=== PATIENT | female | born 1975 | race Caucasian/White ===

== ENCOUNTER 2017-07-18 09:17 | Emergency (ER) | payer OTHER ==
[~2017-07-18] VITALS: Ht 166.4 cm; Wt 71.3 kg
[~2017-07-18 09:17] MED LIST: AMOX500T PO; CORTIS10A EACH EAR
[2017-07-18 09:21] VITALS: BP 128/68; PULSE 88; RESP 16; TEMP 99.6; O2SAT 99
[2017-07-18] MEDS ORDERED: CIPR0.3S EACH EAR (09:30)
[2017-07-18] MEDS ORDERED: CIPR500T2 PO (10:15)
[2017-07-18] MEDS ORDERED: PRED20 PO (10:15)
--- NOTE | 2017-07-18 10:16 | PD ---
HPI Chief Complaint: ENT Complaint Time Seen by Provider: 09:36 Travel History International Travel<30 days: No Contact w/Intl Traveler<30days: No Traveled to known affect area: No History of Present Illness HPI Patient is a 42-year-old female presents emergency department for evaluation of right ear pain and swelling. The patient states she was diagnosed with an outer ear infection yesterday at an urgent care clinic and she was placed on eardrops. She is fairly certain of there were Ciprodex eardrops. She states despite using them last night her pain is still there. She also has a history of eczema and thinks that she might have eczema rear. Denies any cough congestion. States he does have some ringing in her ears. Denies any fevers. Symptoms have been present for the past few days and gradually worsening. PFSH Past Medical History Cancer: No Cardiovascular Problems: No Diminished Hearing: No Endocrine: No Genitourinary: No Immune Disorder: No Musculoskeletal: No Neurologic: Yes Psychiatric: No Reproductive: No Respiratory: No Migraines: Yes Tetanus Vaccination: Unknown Influenza Vaccination: Yes ?: Not LMP: 06/19/17 Past Surgical History Section: Yes (x2) Cholecystectomy: Yes Gynecologic Surgery: Yes (C SECTION X2) Other Surgery: Yes (SINUS SURGERY, breast augmentation, tummy tuck) Social History Alcohol Use: Yes (occas. wine and mix drinks) Tobacco Use: No Substance Use: No Allergies-Medications (Allergen,Severity, Reaction): Coded Allergies: Sulfa (Sulfonamide Antibiotics) (Unverified Allergy, Unknown, 07/18/17) Reported Meds & Prescriptions Reported Meds & Active Scripts Active Ultram (Tramadol HCl) 50 Mg Tab 50 Mg PO Q6H PRN Ciprofloxacin (Ciprofloxacin HCl) 500 Mg Tab 500 Mg PO BID 7 Days Prednisone 20 Mg Tab 60 Mg PO DAILY 5 Days Reported Ciprodex Otic Drops (Ciprofloxacin-Dexamethasone Otic Drops) 0.3-0.1% Susp 3 Drop EACH EAR BID Review of Systems Except as stated in HPI: all other systems reviewed are Neg Physical Exam Narrative GENERAL: Well-nourished, well-developed patient. SKIN: Focused skin assessment warm/dry. HEAD: Normocephalic. EYES: No scleral icterus. No injection or drainage. ENT: There is some stenosis of the external ear canal on the right, TM clear, there is minimal amount of discharge within the ear canal. The patient is also erythematous but does not appear to be overtly swollen. No mastoid tenderness. The left ear canal and TM are normal. NECK: Supple, trachea midline. No JVD or lymphadenopathy. CARDIOVASCULAR: Regular rate and rhythm without murmurs, gallops, or rubs. RESPIRATORY: Breath sounds equal bilaterally. No accessory muscle use. GASTROINTESTINAL: Abdomen soft, non-tender, nondistended. MUSCULOSKELETAL: No cyanosis, or edema. BACK: Nontender without obvious deformity. No CVA tenderness. Data Data Last Documented VS Vital Signs Date Time Temp Pulse Resp B/P (MAP) Pulse Ox O2 Delivery O2 Flow Rate FiO2 07/18/17 09:27 16 07/18/17 09:21 99.6 88 128/68 (88) 99 MDM Medical Decision Making Medical Screen Exam Complete: Yes Emergency Medical Condition: Yes Differential Diagnosis Otitis externa which is moderate in severity, mastoiditis unlikely, URI unlikely , cellulitis. Narrative Course An ear wick was placed for the patient and discussed to use her ear drops 4 times a day until they're all gone. She will be placed on oral prednisone as well as ciprofloxacin given the severity is moderate and approaching severe. She appears well and in no distress. She stable for discharge. Discussed return to ED criteria. Diagnosis Primary Impression: Otitis externa Qualified Codes: H60.501 - Unspecified acute noninfective otitis externa, right ear Additional Instructions: Usual eardrops 4 times a day, one drop in the right ear. If the ear wick falls out that is okay continue to use her eardrops. If the ear does not fall out in a week return to the emergency department for its removal. Med/Other Pt SpecificInfo: Prescription(s) given Scripts Tramadol (Ultram) 50 Mg Tab 50 MG PO Q6H Y for PAIN, #10 TAB 0 Refills Prov: Moody Shepherd MD 07/18/17 Ciprofloxacin (Ciprofloxacin) 500 Mg Tab 500 MG PO BID for Infection for 7 Days, #14 TAB 0 Refills Prov: Moody Shepherd MD 07/18/17 Prednisone (Prednisone) 20 Mg Tab 60 MG PO DAILY for 5 Days, #15 TAB 0 Refills Prov: Moody Shepherd MD 07/18/17 Disposition: 01 DISCHARGE HOME Condition: Stable Moody Shepherd MD Jul 18, 2017 10:15
[2017-07-18] MEDS ORDERED: ULTR50TA5 PO (10:17)
== END 2017-07-18 10:26 | disposition home or self-care (01) ==
LOC: PHED 09:17
DX: H60.91 Unspecified otitis externa, right ear (principal); Z88.2 Allergy status to sulfonamides; Z79.899 Other long term (current) drug therapy
CPT/HCPCS: 99284